=== PATIENT | female | born 1975 | race Caucasian/White ===

== ENCOUNTER 2017-01-15 19:40 | Emergency (ER) | payer MEDICAID ==
[2017-01-15 19:50] VITALS: BP 115/64; PULSE 84; RESP 18; TEMP 97.9; O2SAT 100
--- NOTE | 2017-01-15 20:20 | ED PDOC ---
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 denies: Blurred Vision, Nausea, Vomiting, Extremity Weakness Additional Complaint(s): Carrie Hernandez is a 41 year old female with a past medical history of migraine headaches presenting to the ED for an evaluation of a gradual onset of headache that began this morning, worsening over the span of the day thus prompting her ED visit calli. She states her headache radiates from the front of her nose to her forehead and then to the back of her head. She describes the pain as a throbbing sensation. The patient states she normally takes Topamax for her migraines, 1 tablet taken at night. She also has taken Ibuprofen 200 mg this morning at 8:30 AM, without relief. She states she had a CT scan of her head completed 3 years ago that was reportedly normal. She also states associated redness to her right eye, and mild photophobia. She denies nausea, vomiting, dizziness, or any other medical complaints. PMD: Clarissa Bower MD Past Medical History Reviewed: Historical Data, Nursing Documentation, Vital Signs Vital Signs: Last Vital Signs Temp 97.9 F 01/15/17 19:47 Pulse 84 01/15/17 19:47 Resp 18 01/15/17 19:47 BP 115/64 01/15/17 19:47 Pulse Ox 100 01/15/17 19:47 - Medical History PMH: Migraine - Surgical History Surgical History: Hernia Repair, (x 2) - Family History Family History: States: Unknown Family Hx - Home Medications Home Medications: Ambulatory Orders Medication Instructions Recorded Albuterol HFA [Ventolin HFA 90 1 puff IH ASDIR #1 unit 01/03/15 mcg/actuation (8 g)] Benzonatate [Tessalon Perles] 200 mg PO Q8H PRN #30 tab 01/03/15 Prednisone 20 mg PO BID #10 tab 01/03/15 - Allergies Allergies/Adverse Reactions: Allergies Allergy/AdvReac Type Severity Reaction Status Date / Time No Known Allergies Allergy Verified 01/02/15 22:48 Review of Systems ROS Statement: Except As Marked, All Systems Reviewed And Found Negative Eyes: Positive for: Redness (to right eye ), Other (photophobia (mild)) Neurological: Positive for: Headache (radiating from nose to forehead to back of head) Physical Exam - Reviewed Nursing Documentation Reviewed: Yes Vital Signs Reviewed: Yes - Physical Exam Appears: Positive for: Non-toxic, No Acute Distress Head Exam: Positive for: ATRAUMATIC, NORMOCEPHALIC Eye Exam: Positive for: EOMI, PERRL, Other (pterygium to right eye ) ENT: Positive for: Normal ENT Inspection Neurologic/Psych: 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 Negative for: Motor/Sensory Deficits - ECG O2 Sat by Pulse Oximetry: 100 (RA) Pulse Ox Interpretation: Normal Medical Decision Making Medical Decision Making: Time: 20:10 Impression: Exacerbation of Migraine Plan: * Reglan 10 mg IM * Tylenol 975 mg PO Patient eloped prior to medication administration and reevaluation. Scribe Attestation: Documented by Pricila Morton, acting as a scribe for Miri Longoria PA-C. Provider Scribe Attestation: All medical record entries made by the Scribe were at my direction and personally dictated by me. I have reviewed the chart and agree that the record accurately reflects my personal performance of the history, physical exam, medical decision making, and the department course for this patient. I have also personally directed, reviewed, and agree with the discharge instructions and disposition. Disposition - Clinical Impression Clinical Impression: Headache - Patient ED Disposition Is Patient to be Admitted: No - Disposition Disposition: Eloped Disposition Time: 21:36 (Patient eloped) Condition: UNKNOWN Forms: [employer] (U[place]ayan)
== END 2017-01-15 21:00 | disposition left against medical advice (07) ==
LOC: H.ER 19:40
DX: R51 Headache (principal)

== ENCOUNTER 2018-08-16 17:24 | Emergency (ER) | payer MEDICAID ==
[2018-08-16 17:40] VITALS: BP 107/64; PULSE 86; RESP 16; TEMP 98.3; O2SAT 97
[2018-08-16] MEDS ORDERED: Naproxen 500 MG TAB PO ONE (18:15)
--- NOTE | 2018-08-16 18:55 | ED PDOC ---
HPI: Headache Time Seen by Provider: 08/16/18 17:53 Chief Complaint (Nursing): Headache Chief Complaint (Provider): Headache History Per: Patient History/Exam Limitations: no limitations Onset/Duration Of Symptoms: Days (x2 days) Current Symptoms Are (Timing): Still Present Additional Complaint(s): Patient is a 43 year old female with a past medical history of migraines, who presents to the emergency department with worsening headache today. She states she has also noticed to have some redness and itchiness to the lateral left eye associated cough and sneezing for the past x2 days. Patient does not have any chest pain, dizziness, or weakness. She states that recently when she has a head ache at night, she feels some numbness and tingling but does have that currently in the ED. PMD: Justice Bower Past Medical History Reviewed: Historical Data, Nursing Documentation, Vital Signs Vital Signs: Last Vital Signs Temp 98.3 F 08/16/18 17:39 Pulse 86 08/16/18 17:39 Resp 16 08/16/18 17:39 BP 107/64 08/16/18 17:39 Pulse Ox 97 08/16/18 17:39 Primary Care Provider: Justice Bower - Medical History PMH: Migraine - Surgical History Surgical History: Hernia Repair, (x 2) - Family History Family History: States: Unknown Family Hx - Home Medications Home Medications: Ambulatory Orders Medication Instructions Recorded Albuterol HFA [Ventolin HFA 90 1 puff IH ASDIR #1 unit 01/03/15 mcg/actuation (8 g)] Benzonatate [Tessalon Perles] 200 mg PO Q8H PRN #30 tab 01/03/15 Prednisone 20 mg PO BID #10 tab 01/03/15 Cetirizine HCl/Pseudoephedrine 1 each PO BID #30 tab.er.12h 08/16/18 [Zyrtec-D Tablet] Fluticasone Propionate [Flonase] 1 spr RIZWAN BID #1 bottle 08/16/18 Olopatadine HCl [Patanol] 1 drop OP DAILY #1 08/16/18 - Allergies Allergies/Adverse Reactions: Allergies Allergy/AdvReac Type Severity Reaction Status Date / Time No Known Allergies Allergy Verified 08/16/18 17:39 Review of Systems ROS Statement: Except As Marked, All Systems Reviewed And Found Negative Eyes: Positive for: Redness, Other (itchy eyes) ENT: Positive for: Other (sneezing) Cardiovascular: Negative for: Chest Pain Respiratory: Positive for: Cough Neurological: Positive for: Headache. Negative for: Weakness, Numbness, Dizziness Physical Exam - Reviewed Nursing Documentation Reviewed: Yes Vital Signs Reviewed: Yes - Physical Exam Appears: Positive for: Non-toxic, No Acute Distress Head Exam: Positive for: ATRAUMATIC, NORMOCEPHALIC Eye Exam: Positive for: Conjunctival injection (left sclera but does not reach the iris ) Neck: Positive for: Normal, Painless ROM, Supple Cardiovascular/Chest: Positive for: Regular Rate, Rhythm. Negative for: Murmur Respiratory: Positive for: Normal Breath Sounds. Negative for: Respiratory Distress Gastrointestinal/Abdominal: Positive for: Normal Exam, Soft. Negative for: Tenderness Extremity: Positive for: Normal ROM, Other (full strength to all extremities with sensation intact). 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 Will give reglan and naproxen for headache. Will reevaluate and will discharge home if symptoms have resolved. Instructed to follow up with neurologist in [place] (can not remember the name of neurologist) and will discharge home with allergy medications. --Reglan 10 mg PO --Naproxen 500 mg PO Q12 Scribe Attestation: Documented by Branden Polk, acting as a scribe Rachel Resendiz MD. Provider Scribe Attestation: All medical record entries made by the Scribe were at my direction and personally dictated by me. I have reviewed the chart and agree that the record accurately reflects my personal performance of the history, physical exam, medical decision making, and the department course for this patient. I have also personally directed, reviewed, and agree with the discharge instructions and disposition. Disposition - Clinical Impression Clinical Impression: Acute headache, Seasonal allergies - Disposition Disposition: Routine/Home Disposition Time: 18:05 Condition: IMPROVED Additional Instructions: Follow up with neurologist for worsening headaches and hand numbness. Take medications for migraines as prescribed by your primary doctor. Take allergy medications for itchy eyes, congestion, and runny nose. Return to the emergency department if symptoms worsen or if new symptoms develop. Prescriptions: Cetirizine HCl/Pseudoephedrine [Zyrtec-D Tablet] 1 each PO BID #30 tab.er.12h Fluticasone Propionate [Flonase] 1 spr RIZWAN BID #1 bottle Olopatadine HCl [Patanol] 1 drop OP DAILY #1 Instructions: Acute Headache (ED) Forms: [employer] (Upper Sorbian), [employer] (French) Print Language: BARBADIAN
[2018-08-16] MEDS ORDERED: Naproxen 500 MG TAB PO SCH (21:00)
== END 2018-08-16 19:08 | disposition home or self-care (01) ==
LOC: H.ER 17:24
DX: R51 Headache (principal); J30.2 Other seasonal allergic rhinitis